=== PATIENT | male | born 1970 | race Caucasian/White ===

== ENCOUNTER 2021-07-01 16:33 | Emergency (ER) | payer OTHER, SELFPAY ==
--- NOTE | 2021-07-01 16:41 | ED_ITS ---
HPI - Ear Problem General Chief complaint: Ear Stated complaint: Ear pain Time Seen by Provider: 07/01/21 16:41 Source: patient and family History of Present Illness Complaint: ear pain Location: left ear Discharge from ear: Reports no Related Data Allergies Allergy/AdvReac Type Severity Reaction Status Date / Time No Known Allergies Allergy Unverified 12/25/18 11:01 Review of Systems Review of Systems: CONSTITUTIONAL: Denies fever, chills, or sweats. EYES: Denies visual changes, redness, or discharge. ENT: Denies rhinorrhea, congestion, sore throat, or otalgia. CARDIOVASCULAR: Denies chest pain, palpitations, or edema. RESPIRATORY: Denies cough or dyspnea. GASTROINTESTINAL: Denies abdominal pain, nausea, vomiting, or diarrhea. GENITOURINARY: Denies dysuria or hematuria. SKIN: Denies rash or itching. MUSCULOSKELETAL: Denies back pain, joint pain, or myalgia. NEUROLOGIC: Denies headache, numbness, or weakness. PSYCHIATRIC: Denies anxiety or depression. PMFSH Comments At time of signature, agree with nursing past medical, surgical, social and family history. There is no relevant family history pertinent to the presenting complaint Exam Narrative: GENERAL: Well-appearing, well-nourished, and in no acute distress. HEAD: Normocephalic, atraumatic. EYES: PERRLA and EOMI. ENT: Nares clear, no rhinorrhea or epistaxis. Mucous membranes moist. Moderate erythema to the left canal left TM opaque NECK: Supple. CHEST: Clear to auscultation. No respiratory distress. HEART: Regular rate and rhythm. No murmur heard. Normal peripheral pulses. ABDOMEN: Soft, nontender, nondistended, normal active bowel sounds. EXTREMITIES: Normal range of motion. No edema. SKIN: Warm, dry, no rash. NEURO: No focal deficits. Alert and oriented x3. [place] Coma Scale Eye Opening: Spontaneous 4 Suzan Coma Scale Motor: Obeys Commands 6 Suzan Coma Scale Verbal: Oriented 5 Suzna Coma Scale Total 15 Course Course Level of Care: Express Care Visit Critical Care Time Critical Care Time Critical Care Time: No Discharge Plan Discharge Clinical Impression: Otitis media Patient Disposition: Home, Self-Care Condition: Stable Instructions: Antibiotic Form, Earache (ED) Additional Instructions: TAKE MEDICATION PRESCRIBED FLONASE TWO SPRAYS EACH NOSTRIL BID FOR 14 DAYS FOLLOW UP WITH PRIMARY CARE PROVIDER NEEDED IF ANY NEW OR WORSENING OF SYMPTOMS GO TO ER IMMEDIATELY Prescriptions: New amoxicillin 875 mg tablet 875 mg PO Q12H 7 Days Qty: 14 RF: 0 Follow-up/Referrals: UNKNOWN,DOCTOR [Primary Care Provider] -
[2021-07-01 16:42] VITALS: BP 151/90; PULSE 86; RESP 16; TEMP 36.9; O2SAT 99
== END 2021-07-01 16:57 | disposition home or self-care (01) ==
PROVIDERS: Emergency Provider Nurse Practitioner Family
DX: H66.92 Otitis media, unspecified, left ear (principal)
CPT/HCPCS: 99213; G0463

== ENCOUNTER 2024-07-29 08:01 | Emergency (ER) | payer OTHER, SELFPAY ==
--- OUTSIDE RECORDS SUMMARY | 2024-07-29 08:03 | XMS_ITS | Clinical Summary ---
[facility] Address [address] [place] [address] Care Team Providers Care Tobacco Wrapping Machine Tender Name Role Phone Dax Chapin MD Primary Care Provider + Allergies Active Allergy Reactions Criticality Noted Date Comments Poison Ekaterina Extract Rash Medium 06/26/2024 Medications calcium carbonate-vit D3-min (CALTRATE 600+D PLUS MINERALS) 600 mg calcium- 400 unit tablet Take according to aqvi-csg-dwzouc r package directions 1 po bid 0 0 0 Active cetirizine (ZyrTEC) 10 mg tablet Take 1 tablet (10 mg total) by mouth daily Active Active Problems Problem Noted Date Diagnosed Date Encounter for screening colonoscopy 06/07/2024 Hemorrhage of anus and rectum 06/07/2024 Other constipation 06/07/2024 Third degree hemorrhoids 06/07/2024 Generalized abdominal pain 06/07/2024 Obstructive sleep apnea syndrome 11/03/2013 Overview (09/22/2016): NATIVIDAD on CPAP Vitamin D deficiency 11/03/2013 Overview (09/22/2016): VITAMIN D DEFICIENCY NOS Tobacco dependence syndrome 11/03/2013 Overview (09/22/2016): TOBACCO USE DISORDER Encounters Date Type Department Care Team Description 06/27/2024 1:59 PM DIRECTOR OF NEUROLOGY Anesthesia Event [facility] [address] [place] [address] Dax Hayes MD 06/27/2024 1:00 PM DIRECTOR OF NEUROLOGY - 06/27/2024 1:30 PM DIRECTOR OF NEUROLOGY Surgery [address] [address] Martina Pulliam MD COLON REMOVAL SNARE 06/27/2024 12:35 PM DIRECTOR OF NEUROLOGY - 06/27/2024 3:12 PM DIRECTOR OF NEUROLOGY Hospital Encounter [address] [address] Martina Pulliam MD Encounter for screening colonoscopy; Hemorrhage of anus and rectum; Other constipation; Third degree hemorrhoids; Generalized abdominal pain Discharge Disposition: Discharge to home or self care 06/26/2024 Telephone [facility] Gastroenterology at [address] [place] [address] Janette Alexander MA 06/07/2024 Telephone [facility] Gastroenterology at [address] [place] [address] Sharon Alexander from Last 3 Months Immunizations Name Administration Dates Next Due TD Preservative Free 11/04/2014 Tdap 11/04/2014,06/24/2009 Surgical History Surgery Date Site/Laterality Comments OTHER SURGICAL HISTORY 2006 Bilat CARPAL TUNNEL release, Right radial/ULNAR M. SURGERY VASECTOMY Vasectomy Medical History Medical History Date Comments Hx Other Medical R CARPAL TUNNEL Hx Other Medical hemorrhoid Hx Other Medical IWONA Sleep apnea Family History Medical History Relation Name Comments Coronary artery disease Father Remi nary artery disease; Hypertension Father Hypertension; Hypertension Mother Hypertension; Relation Name Status Comments Father Mother Social History Tobacco Use Types Packs/Day Years Used Date Smoking Tobacco: Every Day Cigarettes Tobacco Cessation:Ready to Q uit: Not Asked; Counseling Given: Not Answered Comments:Smoking History Packs/day: 0.25 Packs Alcohol Use Standard Drinks/Week Comments Yes 0 (1 standard drink = 0.6 oz pur e alcohol) AUDIT-C Answer Date Recorded Q1: How often do you have a drink containing alc ohol? 2-3 times a week 06/26/2024 Q2: How many drinks containi ng alcohol do you have on a typical day when you are drinking? 1 or 2 06/26/2024 Q3: How often do you have si x or more drinks on one occasion? Weekly 06/26/2024 Personal Safety Answer Date Recorded Have you ever been in or are you currently in a harmful physical or emotional relationship or is someone making you feel afraid or unsafe? Denies 06/27/2024 Sex and Gender Information Value Date Recorded Sex Assigned at Not on file Legal Sex Male 11:56 PM DIRECTOR OF NEUROLOGY Gender Identity Not on file Sexual Orientation Not on file Obstetrics History Last Filed Vital Signs Vital Sign Reading Time Taken Comments Blood Pressure 122/80 06/27/2024 2:59 PM DIRECTOR OF NEUROLOGY Pulse 76 06/27/2024 2:59 PM DIRECTOR OF NEUROLOGY Temperature 36.6 C (97.9 F) 06/27/2024 2:59 PM DIRECTOR OF NEUROLOGY Respiratory Rate 18 06/27/2024 2:59 PM DIRECTOR OF NEUROLOGY Oxygen Saturation 97% 06/27/2024 2:59 PM DIRECTOR OF NEUROLOGY Inhaled Oxygen Concentration - - Weight 99.8 kg (220 lb) 06/27/2024 12:52 PM DIRECTOR OF NEUROLOGY Height 182.9 cm (6') 06/27/2024 12:52 PM DIRECTOR OF NEUROLOGY Body Mass Index 29.84 06/27/2024 12:52 PM DIRECTOR OF NEUROLOGY Plan of Treatment Health Maintenance Due Date Last Done Comments Depression Screening 1970 Hepatitis C Screening 1971 Prostate Cancer Screening-PSA 1971 Pneumococcal vaccine <65 (1 of 2 - PCV) 1977 Hepatitis B Screening 1989 Regular Well Visit/Exam 18-64 1989 Zoster Vaccine (1 of 2) 2021 Influenza Vaccine (#1) 2024 DTaP/Tdap/Td Vaccine (4 - Td or Tdap) 11/04/2024 11/04/2014, 11/04/2014, 06/24/2009 Colon Cancer Screening-Colonoscopy 06/27/20342024 Procedures Procedure Name Priority Date/Time Associated Diagnosis Comments COLON REMOVAL SNARE 06/27/2024 1 :48 PM DIRECTOR OF NEUROLOGY Encounter for screening colonoscopy Hemorrhage of anus and rectum Other constipation Third degree hemorrhoids Generalized abdominal pain COLONOSCOPY 06/27/2024 12:46 PM DIRECTOR OF NEUROLOGY SURGICAL PATHOLOGY STAT 06/27/2024 8: 54 AM DIRECTOR OF NEUROLOGY Encounter for screening colonoscopy Hemorrhage of anus and rectum Other constipation Third degree hemorrhoids Generalized abdominal pain from Last 3 Months Results * Colonoscopy (06/27/2024 12:46 PM DIRECTOR OF NEUROLOGY) Anatomical Region Laterality Modality Other Narrative Procedure Note Martina Pulliam MD - 06/27/2024 12:46 PM CST [facility] Patient Name: Dre Carson Procedure Date: 06/27/2024 12:46 PM Date of : 1970 Admit Type: Outpatient Age: 54 Gender: Male Attending MD: Martina Pulliam M.D. [facility] Note Status: Finalized Patient Profile: This is a 54 year old male. History of polyps. No family history of colon cancer. Noted recurrent episodes of bright red bleeding per rectum. Procedure: Colonoscopy Indications: High risk colon cancer surveillance: Personalhistory of colonic polyps, Last colonoscopy: 2019 Referring MD: Dax Chapin M.D. Providers: Martina Pulliam M.D. Impression: - Hemorrhoids found on perianal exam. - The cecum is normal. - The descending colon, transverse colon andascending colon are normal. - Five 5 to 9 mm polyps in the rectum and in the sigmoid colon, removed with a cold snare. Resectedand retrieved. - Internal hemorrhoids. Recommendation: - Await pathology results. - Repeat colonoscopy in 3 years for surveillance. - Take rpoc-glw-ajvkxti fiber supplements daily - Use Anusol or preparation H for hemorrhoids asneeded - Referral to general surgery for surgicalmanagement of the hemorrhoids if needed. Medicines: Monitored Anesthesia Care Complications: No immediate complications. Estimated Blood Loss: Estimated blood loss: none. Procedure: Pre-Anesthesia Assessment: - Prior to the procedure, a History and Physicalwas performed, and patient medications and allergieswere reviewed. The patient's tolerance of previous anesthesia was also reviewed. The risks andbenefits of the procedure and the sedation options and risks were discussed with the patient. All questions were answered, and informed consent was obtained. Prior Anticoagulants: The patient has taken noanticoagulant or antiplatelet agents. ASA Grade Assessment: Per anesthesia note and evaluation. After reviewing the risks and benefits, the patient was deemed in satisfactory condition to undergo the procedure. The benefits, risks and alternatives of theprocedure and sedation were discussed and informed consentwas obtained. All questions were answered. Please referto the signed informed consent document in the medical record. The bowel preparation used was Miralax and bisacodyl tablets via split dose instruction. The scope was passed under direct vision. The Pediatric Colonoscope PCF-H190L [id number] was introducedthrough the anus and advanced to the the cecum, identifiedby appendiceal orifice and ileocecal valve. Thequality of the bowel preparation was good. Bowel prep was administered using a split dose. Findings: Hemorrhoids were found on perianal exam. The cecum appeared normal. The descending colon, transverse colon and ascending colon appeared normal. Five sessile polyps were found in the rectum and sigmoid colon. The polyps were 5 to 9 mm in size. These polyps were removed with a cold snare. Resection and retrieval were complete. Internal hemorrhoids were found during retroflexion. The hemorrhoids were small. Electronically signed by Martina Pulliam M.D. Martina Pulliam M.D. 06/27/2024 2:28:13 PM Number of Addenda: 0 Note Initiated On: 06/27/2024 12:46 PM Procedure Code(s): --- Professional --- 57625, Colonoscopy, flexible; with removal of tumor(s), polyp(s), or other lesion(s) by snare technique Diagnosis Code(s): --- Professional --- Z86.010, Personal history of colonic polyps K64.8, Other hemorrhoids D12.8, Benign neoplasm of rectum D12.5, Benign neoplasm of sigmoid colon CPT copyright 2020 [employer]. All rights reserved. The codes documented in this report are preliminary and upon insurance coder reviewmay be revised to meet current compliance requirements. Recognized by the [employer] for promoting quality in endoscopy Martina Pulliam MD ENDOSCOPY PROCEDURES Final Result * Surgical pathology (06/27/2024 8:54 AM DIRECTOR OF NEUROLOGY) Tissue (Polyp(s), colon/colorectal, esophageal, gastric) 06/27/2024 2:22 PM DIRECTOR OF NEUROLOGY Narrative [facility] - 06/29/2024 11:32 AM DIRECTOR OF NEUROLOGY EPIC results best viewed via link to PDF [facility] Department of Pathology [address] [place] [address] Note to Patients: This report may contain a detailed description of human tissue sent by a health care provider to the laboratory for pathologic evaluation. The content of this report is essential for diagnosis and may provide important critical findings. This information may be unfamiliar to patients to review without a medical professional present. It is advised that the patient review this report in the presence of a health care provider who can answer questions and explain the details. Final Report Patient Name: DRE CARSON [address] [place] [address] Gender: M : 1970 (Age: 54) Service: Gastro Location: [facility] Hospital #: [id number] Patient Type: [facility] Taken: 06/27/2024 Received: 06/28/2024 Accessioned: 06/28/2024 Reported: 06/29/2024 Physician(s):Dr. Martina Pulliam M.D. Diagnosis: Sigmoid colon polyp x5, biopsy: - Tubular adenoma x2; negative for high-grade dysplasia. - Hyperplastic polyp x3. Irvin Lazcano M.D. Report Electronically Reviewed and Signed Out By Irvin Lazcano M.D. 06/29/2024 11:32:23 Specimen(s) Received: A: Sigmoid colon polyp x5 Microscopic Description: Sections show a tubular adenoma x2 and a hyperplastic polyp x3. There is no evidence of high-grade dysplasia or invasive carcinoma. Clinical History: Hemorrhage of anus and rectum. Constipation. Third degree hemorrhoids. Generalized abdominal pain. Screening colonoscopy. Gross Description: The specimen is submitted in a single formalin filled container labeled DRE JUNE and sigmoid polyp x5 skip it 5 fragments of art tissue between 1 and 3 mm . It is one art tissue fragment measuring 2 mm. All in one cassette. Tone Sears R.N., P.A./Juana Peterson M.D. REPORT IMAGES AND SCANNED DOCUMENTS, IF INCLUDED, ONLY VIEWABLE IN PDF VERSION OF REPORT The performance characteristics of some immunohistochemical stains, fluorescence in-situ hybridization tests and immunophenotyping by flow cytometry cited in this report (if any) were determined by the Surgical Pathology Department at [facility] as part of an ongoing quality assurance supervisor body program and in compliance with federally mandated regulations drawn from the Clinical Laboratory Improvement Act of 1988 (CLIA '88). Some of these tests rely on the use of analyte specific reagents and are subject to specific labeling requirements by the US Food and Drug Administration. Such diagnostic tests may only be performed in a facility that is certified by the Department of Health and Human Services as a high complexity laboratory under CLIA '88. The FDA has determined that such clearance or approval is not necessary. This test is used for clinical purposes. It should not be regarded as investigational or for research. Nevertheless, federal rules concerning the medical use of analyte specific reagents require that the following disclaimer be attached to the report: This test was developed and its performance characteristics determined by the Surgical Pathology Department [facility]. It has not been cleared or approved by the U. S. Food and Drug Administration. Note for decalcified specimens: This assay has not been validated on decalcified tissues. Results should be interpreted with caution given the possibility of false negativity on decalcified specimens Martina Pulliam MD LAB PATHOLOGY ORDERABLES F inal Result PATHOLOGY [facility] [address] [place] [address] from Last 3 Months Insurance [place] [id number] [employer] OPEN ACCESS [place] [address] [place] [address] Advance Directives For more information, please contact: [phone] * Full Code (Latest Code Status on File) Date Activated Date Inactivated Comments 06/27/2024 12:45 PM 06/27/2024 7:23 PM * Full Code Date Activated Date Inactivated Comments 06/27/2024 12:45 PM 06/27/2024 12:45 PM Care Teams Tobacco Wrapping Machine Tender Relationship Specialty Start Date End Date Dax Chapin MD [address] [place] [address] PCP - General 09/17/16
--- OUTSIDE RECORDS SUMMARY | 2024-07-29 08:03 | XMS_ITS | Referral Summary ---
Author Organization [facility] Medical Office Building B Address [address] [place] [address] Care Team Providers Care Electric Tripper Machine Operator Name Role Phone Dax Chapin MD Primary Care Provider + Encounters Date Type Department Care Team Description 06/27/2024 1:59 PM DYE EXPERT Anesthesia Event [address] [address] Dax Hayes MD 06/27/2024 1:00 PM DYE EXPERT - 06/27/2024 1:30 PM DYE EXPERT Surgery [address] [address] Martina Pulliam MD COLON REMOVAL SNARE 06/27/2024 12:35 PM DYE EXPERT - 06/27/2024 3:12 PM DYE EXPERT Hospital Encounter [address] [address] Martina Pulliam MD Encounter for screening colonoscopy; Hemorrhage of anus and rectum; Other constipation; Third degree hemorrhoids; Generalized abdominal pain Discharge Disposition: Discharge to home or self care 06/26/2024 Telephone [facility] Gastroenterology at [address] [place] [address] Janette Alexander MA 06/07/2024 Telephone [facility] Gastroenterology at [address] [place] [address] Sharon Alexander from Last 3 Months Allergies Active Allergy Reactions Criticality Noted Date Comments Poison Ekaterina Extract Rash Medium 06/26/2024 Medications calcium carbonate-vit D3-min (CALTRATE 600+D PLUS MINERALS) 600 mg calcium- 400 unit tablet Take according to clzl-hls-vfzyjz r package directions 1 po bid 0 [...] syndrome 11/03/2013 Overview (09/22/2016): TOBACCO USE DISORDER Immunizations Name Administration Dates Next Due TD Preservative Free 11/04/2014 Tdap 11/04/2014,06/24/2009 Social History Tobacco Use Types Packs/Day Years [...] on file Legal Sex Male 11:56 PM DYE EXPERT Gender Identity Not on file Sexual Orientation Not on file Last Filed Vital Signs Vital Sign Reading Time Taken Comments Blood Pressure 122/80 06/27/2024 2:59 PM DYE EXPERT Pulse 76 06/27/2024 2:59 PM DYE EXPERT Temperature 36.6 C (97.9 F) 06/27/2024 2:59 PM DYE EXPERT Respiratory Rate 18 06/27/2024 2:59 PM DYE EXPERT Oxygen Saturation 97% 06/27/2024 2:59 PM DYE EXPERT Inhaled Oxygen Concentration - - Weight 99.8 kg (220 lb) 06/27/2024 12:52 PM DYE EXPERT Height 182.9 cm (6') 06/27/2024 12:52 PM DYE EXPERT Body Mass Index 29.84 06/27/2024 12:52 PM DYE EXPERT Plan of Treatment Not on file Procedures Procedure Name Priority Date/Time Associated Diagnosis Comments COLON REMOVAL SNARE 06/27/2024 1 :48 PM DYE EXPERT Encounter for screening colonoscopy Hemorrhage of anus and rectum Other constipation Third degree hemorrhoids Generalized abdominal pain COLONOSCOPY 06/27/2024 12:46 PM DYE EXPERT SURGICAL PATHOLOGY STAT 06/27/2024 8: 54 AM DYE EXPERT Encounter for screening colonoscopy Hemorrhage of anus and rectum Other constipation Third degree hemorrhoids Generalized abdominal pain from Last 3 Months Results * Colonoscopy (06/27/2024 12:46 PM DYE EXPERT) Anatomical Region Laterality Modality Other Narrative Procedure Note Martina Pulliam MD - 06/27/2024 12:46 PM CST [facility] Patient Name: Dre Carson Procedure Date: 06/27/2024 12:46 PM Date of : 1970 Admit Type: Outpatient Age: 54 Gender: Male Attending MD: Martina Pulliam M.D. Room: [facility] ENDOSCOPY ROOM 1 Note Status: Finalized Patient [...] in 3 years for surveillance. - Take lwrr-zju-lwxwouc fiber supplements daily - Use Anusol or [...] under direct vision. The Pediatric Colonoscope PCF-H190L [id number] was introducedthrough the anus and advanced to [...] 12:46 PM Procedure Code(s): --- Professional --- 26435, Colonoscopy, flexible; with removal of tumor(s), polyp(s), or other lesion(s) by snare technique Diagnosis Code(s): --- Professional --- Z86.010, Personal history of colonic polyps K64.8, Other hemorrhoids D12.8, Benign neoplasm of rectum D12.5, Benign neoplasm of sigmoid colon CPT copyright 2020 [employer]. All rights reserved. The codes documented in this report are preliminary and upon certified medical records coder reviewmay be revised to meet current compliance requirements. Recognized by the [place] for promoting quality in endoscopy us Martina Pulliam MD ENDOSCOPY PROCEDURES Final Result * Surgical pathology (06/27/2024 8:54 AM DYE EXPERT) Tissue (Polyp(s), colon/colorectal, esophageal, gastric) 06/27/2024 2:22 PM DYE EXPERT Narrative PATHOLOGY [facility] - 06/29/2024 11:32 AM DYE EXPERT EPIC results best viewed via link to PDF [facility] Department of Pathology [address] [place] [address] Note to Patients: This report may contain [...] Final Report Patient Name: DRE CARSON Address: [address] [place] [address] Gender: M : 1970 (Age: 54) Service: Gastro Location: [facility] Hospital #: [id number] [facility] Taken: 06/27/2024 Received: 06/28/2024 Accessioned: 06/28/2024 Reported: [...] a single formalin filled container labeled DRE CARSON and sigmoid polyp x5 skip it 5 fragments of art tissue between 1 and 3 mm . It is one art tissue fragment measuring 2 mm. All in one cassette. T.A. Sears, R.N., P.Lusi M./Juana Peterson M.D. REPORT IMAGES AND SCANNED DOCUMENTS, IF INCLUDED, ONLY VIEWABLE IN PDF VERSION OF REPORT The performance characteristics of some immunohistochemical stains, fluorescence in-situ hybridization tests and immunophenotyping by flow cytometry cited in this report (if any) were determined by the Surgical Pathology Department at [facility] as part of an ongoing quality control inspector program and in compliance with federally mandated [...] characteristics determined by the Surgical Pathology Department [facility]. It has not been cleared or approved by the U. S. Food and Drug Administration. Note for decalcified specimens: This assay has not been validated on decalcified tissues. Results should be interpreted with caution given the possibility of false negativity on decalcified specimens Martina Pulliam MD LAB PATHOLOGY ORDERABLES F inal Result Performing Organization Address City/State/[facility] Co de Phone Number PATHOLOGY [facility] [address] [place] [address] from Last 3 Months Insurance [place] [id number] [employer] [place] [address] [place] [address] [place] [address] Advance Directives For more information, please contact: [phone] * Full Code (Latest Code Status on File) Date Activated Date Inactivated Comments 06/27/2024 12:45 PM 06/27/2024 7:23 PM * Full Code Date Activated Date Inactivated Comments 06/27/2024 12:45 PM 06/27/2024 12:45 PM Care Teams Electric Tripper Machine Operator Relationship Specialty Start Date End Date Dax Chapin MD [address] [address] PCP - General 09/17/16
--- NOTE | 2024-07-29 08:04 | ED_ITS ---
HPI - URI/Sore Throat General Chief Complaint: Upper Respiratory Infection Stated Complaint: poss sinus infection Time Seen by Provider: 07/29/24 08:04 Source: patient, RN notes reviewed and old records reviewed Mode of arrival: ambulatory Limitations: no limitations History of Present Illness HPI Narrative: patient presents with complaints of left ear pain and sinus congestion and purulent nasal drainage for 7-10 days. He reports chills and sweats, states no fever. He has been taking blue and red medicine for his symptoms with minimal relief. He denies any injury or trauma. Voices no other concerns or complaints at this time Related Data Allergies Allergy/AdvReac Type Severity Reaction Status Date / Time No Known Allergies Allergy Unverified 12/25/18 11:01 Review of Systems Review of Systems: All systems reviewed & are unremarkable except as noted in HPI and below Constitutional: Constitutional: Reports no additional constitutional complaints, Reports chills, Reports headache(s) and Reports lethargy ENT: Reports system reviewed and no additional complaints, except as documented, Reports otalgia, Reports nasal congestion, Reports nasal discharge, Reports sinus pain and Reports sinus pressure Cardiovascular: Cardiovascular: Reports no additional cardiovascular complaints Respiratory: Respiratory: Reports no additional respiratory complaints and Reports cough Gastrointestinal: Gastrointestinal: Reports no additional gastrointestinal complaints PMFSH Comments At the time of my signature, I reviewed and agree with the nursing past m edical, surgical, social, and family history. There is no relevant family history pertinent to the patient complaint. Exam Const: General: cooperative, no acute distress, alert and awake Orientation/consciousness: oriented to person, oriented to place and oriented to time HENMT: Head: normal to inspection Ears: TM abnormal bulging on the left, erythematous on the left and with fluid behind the TM on the right Face and sinus: sinus tenderness frontal Mouth: Yes moist mucous membranes Throat: postnasal drainage Resp: Effort & Inspection: normal respiratory effort and able to speak in complete sentences Auscultation: clear to auscultation bilaterally, no crackles, no rales, no rhonchi and no wheezes Cardio: Palpation: normal PMI Rate: regular rate Rhythm: regular rhythm Heart sounds: S1 normal heart sound present and S2 normal heart sound present Neuro: General: oriented to person, oriented to place and oriented to time Cranial nerves: Yes CN's II-XII intact bilaterally Psych: Appearance: grossly normal Thought process: Normal thought process present Insight: Good insight present (Psych) Judgement: Good judgement present (Psych) Course Course Level of Care: Express Care Visit Vital Signs Vital signs: Reviewed MDM - URI/Sore Throat MDM Narrative Medical decision making narrative: history and exam consistent with otitis media. Patient reports that amoxicillin is the only medication that works for him. This will be prescribed. Work note provided. He is nontoxic appearing, stable for discharge home. Discharge instructions reviewed with patient, as well as provided in writing per nursing staff. The instructions also include specific and strict return/GO TO THE ER as well as f/u information. All questions have been answered, and the patient deny any further questions with discharge and discharge plan. Some parts of this dictation were generated by voice recognition software and may contain typographical and/or grammatical inaccuracies. Differential Diagnosis Differential diagnosis: Likely upper respiratory infection, otitis media, sinusitis and viral infection Medical Records Attestation: I reviewed the patient's medical records. Discharge Plan Discharge Clinical Impression: Elevated blood pressure reading Otitis media Qualifiers: Otitis media type: suppurative Chronicity: acute Laterality: left Recurrence: not specified as recurrent Spontaneous tympanic membrane rupture: without spontaneous rupture Qualified Code(s): H66.002 - Acute suppurative otitis media without spontaneous rupture of ear drum, left ear Patient Disposition: Home, Self-Care Condition: Stable Instructions: Antibiotic Form, Earache (ED) Additional Instructions: Take medications as prescribed. Follow-up with primary care provider. Emergency department for new or worse symptoms blood pressure today is elevated at 160 4/73. Normal blood pressure is 120/80. Please discuss this with your primary care provider without fail Patient Language: Spanish Prescriptions: New amoxicillin 875 mg tablet 875 mg PO Q12H Qty: 14 0RF Follow-up/Referrals: Tavares,Krish Diehl MD [Primary Care Provider] - 2 Weeks Stand Alone Forms: Work/School Release IP Time of Disposition: 08:16
[2024-07-29 08:12] VITALS: BP 164/73; PULSE 107; RESP 16; TEMP 36.8; O2SAT 100
== END 2024-07-29 08:28 | disposition home or self-care (01) ==
PROVIDERS: Emergency Provider Nurse Practitioner Family; PCP Internal Medicine
DX: R03.0 Elevated blood-pressure reading, without diagnosis of hypertension (principal); H66.002 Acute suppurative otitis media without spontaneous rupture of ear drum, left ear
CPT/HCPCS: 99213; G0463